=== PATIENT | female | born 1985 | race Caucasian/White ===

== ENCOUNTER 2016-10-25 13:56 | Emergency (ER) ==
[2016-10-25 14:03] VITALS: BP 140/79; TEMP 98.3; BMI 19.5
--- NOTE | 2016-10-25 15:20 | ED.PDOC ---
General ED Provider: Dr. RIGO BLEVINS Chief Complaint: Extremity Pain/Injury Stated Complaint: abscess left upper arm Time Seen by Physician: 14:00 (tender to touch see photosx2 ) Mode of Arrival: Walk-In Information Source: Patient Exam Limitations: No limitations Primary Care Provider: JESUS GIVENS Nursing and Triage Documentation Reviewed and Agree: Yes Skin Complaint Exam - Skin/Soft Tissue Complaint/Exam Onset/Duration: left upper arm postive for abscess 1 cm Symptoms Are: Still present Initial Severity: Mild Current Severity: Mild Character: Reports: Redness, Swelling Aggravating: Reports: None Alleviating: Reports: None Associated Signs and Symptoms: Reports: Red streaks Related History: Reports: Similar episode Related Surgical History: Reports: None Recent Exposure to Others w/Similar Symptoms: No Skin Findings: Present: Normal findings Differential Diagnoses: Abscess Review of Systems - Review Of Systems Constitutional: Reports: No symptoms Eyes: Reports: No symptoms Ears, Nose, Mouth, Throat: Reports: No symptoms Respiratory: Reports: No symptoms Cardiac: Reports: No symptoms GI: Reports: No symptoms : Reports: No symptoms Musculoskeletal: Reports: No symptoms Skin: Reports: Other (left upper arm abscess ) Neurological: Reports: No symptoms Endocrine: Reports: No symptoms Hematologic/Lymphatic: Reports: No symptoms All Other Systems: Reviewed and Negative Past Medical History - Past Medical History Previously Healthy: Yes Endocrine: Reports: None Cardiovascular: Reports: None Respiratory: Reports: None Hematological: Reports: None Gastrointestinal: Reports: None Genitourinary: Reports: None Neuro/Psych: Reports: None Musculoskeletal: Reports: None Cancer: Reports: None Last Menstrual Period: na - Surgical History General Surgical History: Reports: None - Family History Family History: Reports: None - Social History Smoking Status: Former smoker Hx Substance Use: No Alcohol Screening: None - Immunizations Tetanus Shot up to Date: Yes Physical Exam - Physical Exam Appearance: Well-appearing, No pain distress, Well-nourished Eyes: TICO, EOMI, Conjunctiva clear ENT: Ears normal, Nose normal, Oropharynx normal Respiratory: Airway patent, Breath sounds clear, Breath sounds equal, Respirations nonlabored Cardiovascular: RRR, Pulses normal, No rub, No murmur GI/: Soft, Nontender, No masses, Bowel sounds normal, No Organomegaly Musculoskeletal: Normal strength, ROM intact, No edema, No calf tenderness Skin: Warm, Dry (abscess upper arm), Normal color Neurological: Sensation intact, Motor intact, Reflexes intact, Cranial nerves intact, Alert, Oriented Psychiatric: Affect appropriate, Mood appropriate Critical Care Note - Critical Care Note Total Time (mins): 0 Course - Course Vital Signs: Temp Pulse Resp BP Pulse Ox 10/25/16 13:57 98.3 F 125 H 18 140/79 98 Departure - Departure Time of Disposition: 15:22 Disposition: HOME SELF-CARE Discharge Problem: Abscess Instructions: Abscess (ED) Condition: Good Pt referred to PMD for follow-up: No Additional Instructions: Please call your Family Physician as soon as possible to schedule a follow-up appointment. Allergies/Adverse Reactions: Allergies ferrous fumarate [From 1 + Iron] Adverse Reaction (Verified 10/25/16 14 :05) folic acid [From 1 + Iron] Adverse Reaction (Verified 10/25/16 14:05) vitamins with calcium [From 1 + Iron] Adverse Reaction ( Verified 10/25/16 14:05) vits w-Ca,Fe,FA(1 mg) [From 1 + Iron] Adverse Reaction ( Verified 10/25/16 14:05) Home Medications: Ambulatory Orders Citalopram Hydrobromide [Celexa] 40 mg PO DAILY 03/29/13 Dextroamphetamine/Amphetamine [Adderall 30 mg Tablet] 30 mg PO BID 03/29/14 Diazepam [Valium] 0.5 mg PO BID 03/29/14
== END 2016-10-25 15:38 | disposition home or self-care (01) ==
LOC: ED 13:56
DX: L02.414 Cutaneous abscess of left upper limb (principal)
CPT/HCPCS: 99282

== ENCOUNTER 2017-03-07 12:45 | Outpatient (CLI) ==
--- NOTE | 2017-03-07 13:24 | DI ---
Exam: Seven x-rays of the cervical spine. Comparison: None available. Reason for exam: Neck pain. FINDINGS: No acute fracture or listhesis. The vertebral bodies and intervertebral body disc space heights are relatively well maintained. There is no abnormal motion seen on flexion or extension x- rays. The prevertebral soft tissues are within normal limits. The dens appears intact on the Water s view. Impression: 1. No acute fracture or listhesis in the cervical spine. 2. No abnormal motion on flexion or extension
--- NOTE | 2017-03-07 13:56 | DI ---
EXAM: Five views of the lumbar spine HISTORY: Back pain. COMPARISON: CT abdomen pelvis 05/07/2014 FINDINGS: There is no acute compression fracture or subluxation. The facets are normal. There is n o lytic or blastic lesion. Disc space and vertebral body height are normal. The lumbosacral juncti on is intact. Soft tissues are normal. IMPRESSION: No acute abnormality of the lumbosacral spine.
== END 2017-03-07 12:46 | disposition home or self-care (01) ==
LOC: RAD 12:45
PROVIDERS: ATTEND Physician Assistant
DX: M54.5 Low back pain (principal); M54.2 Cervicalgia